=== PATIENT | female | born 1945 | race Caucasian/White ===

== ENCOUNTER 2016-07-28 14:44 | Emergency (ER) | payer MEDICARE | END 2016-07-28 19:17 | disposition critical access hospital (66) | LOC: ER 14:44 | DX: E86.0 Dehydration (principal); E87.1 Hypo-osmolality and hyponatremia; I95.1 Orthostatic hypotension; R50.9 Fever, unspecified; R05 Cough; E11.9 Type 2 diabetes mellitus without complications; I10 Essential (primary) hypertension; E78.5 Hyperlipidemia, unspecified | CPT/HCPCS: 36415; 51701; 87502; 96361; 96365; 96375; 96376 ==

== ENCOUNTER 2016-07-28 14:44 | Inpatient (IN) | payer MEDICARE ==
--- NOTE | 2016-07-30 10:04 | NUR ---
0935: REPORT RECEIEVED FROM [employer]SULTANT AND ZUNILDA SOUSA-STUDENT RN. AM IN AGREEMENT WITH PREVIOUS ASSESSMENT. PT IS STABLE AT THIS TIME WITH NO S/SX OF DISTRESS NOTED. WILL CONTINUE TO MONITOR.
[2016-07-31] MEDS ORDERED: PRINIVIL10 MG PO (11:46)
[2016-07-31] MEDS ORDERED: METOPROLOL TART25 MG PO (11:46)
[2016-07-31] MEDS ORDERED: LIPITOR20 MG PO (11:47)
[2016-07-31] MEDS ORDERED: UCERIS9 MG PO (11:47)
[2016-07-31] MEDS ORDERED: ASPIRIN EC81 MG PO (11:47)
[2016-07-31] MEDS ORDERED: VITAMIN E400 UNI2 PO (11:48)
[2016-07-31] MEDS ORDERED: B-121000 MCG PO (11:48)
[2016-07-31] MEDS ORDERED: CALCIUM 600 +1 EA10 PO (11:48)
[2016-07-31] MEDS ORDERED: LEVAQUIN750 MG PO (11:49)
== END 2016-07-31 13:05 | disposition home or self-care (01) | DRG 194 ==
LOC: ER 14:44 → MED 19:18
PROVIDERS: ADMIT Internal Medicine
DX: J18.9 Pneumonia, unspecified organism (principal); N17.9 Acute kidney failure, unspecified; E87.1 Hypo-osmolality and hyponatremia; E86.0 Dehydration; I95.1 Orthostatic hypotension; K58.9 Irritable bowel syndrome, unspecified; J11.1 Influenza due to unidentified influenza virus with other respiratory manifestations; I12.9 Hypertensive chronic kidney disease with stage 1 through stage 4 chronic kidney disease, or unspecified chronic kidney disease; E11.22 Type 2 diabetes mellitus with diabetic chronic kidney disease; B34.9 Viral infection, unspecified; Z79.899 Other long term (current) drug therapy; Z90.710 Acquired absence of both cervix and uterus; Z80.1 Family history of malignant neoplasm of trachea, bronchus and lung; Z82.5 Family history of asthma and other chronic lower respiratory diseases; J34.89 Other specified disorders of nose and nasal sinuses; B95.62 Methicillin resistant Staphylococcus aureus infection as the cause of diseases classified elsewhere; L27.0 Generalized skin eruption due to drugs and medicaments taken internally; T37.0X5A Adverse effect of sulfonamides, initial encounter; D72.819 Decreased white blood cell count, unspecified; E78.5 Hyperlipidemia, unspecified; M13.859 Other specified arthritis, unspecified hip; N18.3 Chronic kidney disease, stage 3 (moderate)
CPT/HCPCS: 36415; 87502; 94664; J1650